=== PATIENT | male | born 1995 | race Caucasian/White ===

== ENCOUNTER 2017-08-07 18:39 | Emergency (ER) | payer BC, OTHER ==
[~2017-08-07] VITALS: Ht 188 cm; Wt 113.0 kg
[~2017-08-07 18:39] MED LIST: NAPROSYN500 MG PO
[2017-08-07 20:41] VITALS: BP 110/65
== END 2017-08-07 20:41 | disposition home or self-care (01) ==
LOC: EME 18:39
PROC: 0HQEXZZ Repair Left Lower Arm Skin, External Approach (ICD-10-PCS; principal; 2017-08-07)
DX: S61.512A Laceration without foreign body of left wrist, initial encounter (principal); W27.8XXA Contact with other nonpowered hand tool, initial encounter
CPT/HCPCS: 73110; 99281; 99283